=== PATIENT | male | born 1985 | race African-American/Black ===

== ENCOUNTER 2023-06-27 07:49 | Day surgery (SDC) | payer BC ==
[~2023-06-27] VITALS: Ht 180.3 cm; Wt 80.1 kg
[~2023-06-27 07:49] MED LIST: FAMO40TA3 PO; LISI5TAB11 PO; THERTAB52 PO; ZYRT10TA12 PO
[2023-06-27] MEDS ORDERED: propofoL 200 MG/20 ML VIAL As Ordered ONE (08:26)
[2023-06-27] MEDS: NS 1,000 ML IV ONE (08:27)
[2023-06-27] MEDS ORDERED: fentaNYL 100 MCG/2 ML INJECTION As Ordered ONE (08:41)
[2023-06-27 09:49] VITALS: TEMP 96.5
[2023-06-27 09:55] VITALS: BP 127/86; O2SAT 99
== END 2023-06-27 10:07 | disposition home or self-care (01) ==
LOC: M OPP 07:49
PROVIDERS: ATTEND Internal Medicine Gastroenterology
DX: K29.70 Gastritis, unspecified, without bleeding (principal); K22.89 Other specified disease of esophagus; R10.13 Epigastric pain; Z79.1 Long term (current) use of non-steroidal anti-inflammatories (NSAID); Z79.82 Long term (current) use of aspirin; Z79.899 Other long term (current) drug therapy
CPT/HCPCS: 43239; 88305; J3010

== ENCOUNTER → 2023-07-15 | Outpatient (REF) | payer BC | LOC: M SFHCDERM 12:22 | PROVIDERS: ATTEND Nurse Practitioner Family | DX: L20.9 Atopic dermatitis, unspecified (principal) ==